=== PATIENT | female | born 1970 | race Caucasian/White ===

== ENCOUNTER 2019-06-26 02:13 | Emergency (ER) | payer OTHER ==
[~2019-06-26] VITALS: Ht 170.2 cm; Wt 86.2 kg
[~2019-06-26 02:13] MED LIST: SYNTHROID50 MCG PO
[2019-06-26] MEDS ORDERED: COZAAR100 MG (02:33)
[2019-06-26] MEDS ORDERED: ASPIRINA (02:33)
[2019-06-26] MEDS ORDERED: BENADRYL (02:34)
[2019-06-26] MEDS ORDERED: MEDROLPACK PO (06:51)
[2019-06-26] MEDS ORDERED: ZYRTEC10 MG PO (06:51)
== END 2019-06-26 07:44 | disposition home or self-care (01) ==
LOC: ER 02:13
DX: H57.89 Other specified disorders of eye and adnexa (principal); T39.1X5A Adverse effect of 4-Aminophenol derivatives, initial encounter; Y92.89 Other specified places as the place of occurrence of the external cause